=== PATIENT | female | born 1975 | race Asian ===

== ENCOUNTER 2024-01-30 04:35 | Day surgery (SDC) | payer OTHER ==
[2024-01-29 09:09] VITALS: BMI 24.2
[2024-01-30] MEDS ORDERED: BUPIVACAINE HCL/PF 0.25% (2.5MG/ML) 10 ML VIAL ONE (07:25)
[2024-01-30 07:45] VITALS: RESP 18
[2024-01-30] MEDS: IOHEXOL 180 MG/1 ML ML IJ ONE (11:34)
[2024-01-30] MEDS: LIDOCAINE HCL 1% PRESERVATIVE FREE - 30ML VIAL IJ ONE (11:34)
[2024-01-30] MEDS: DEXAMETHASONE SOD PHOSPHATE 10 MG/1 ML VIAL IVPUSH ONE (11:34)
[2024-01-30 12:57] VITALS: BP 140/80; PULSE 80; TEMP 98.2
[2024-01-30] MEDS ORDERED: ACETAMINOPHEN 500 MG TABLET (FP) PO PRN (15:59)
== END 2024-01-30 13:00 | disposition home or self-care (01) ==
LOC: JASU-SURG 04:35
PROVIDERS: ATTEND Pain Medicine Pain Medicine
PROC: 3E0R3BZ Introduction of Anesthetic Agent into Spinal Canal, Percutaneous Approach (ICD-10-PCS; 2024-01-30)
PROC: 3E0R33Z Introduction of Anti-inflammatory into Spinal Canal, Percutaneous Approach (ICD-10-PCS; principal; 2024-01-30 10:00)
DX: M54.12 Radiculopathy, cervical region (principal)
CPT/HCPCS: 76000-TC-FY; 81025; J1100